=== PATIENT | male | born 1995 | race Caucasian/White ===

== ENCOUNTER 2016-04-07 21:45 | Emergency (ER) | payer OTHER, BC ==
[~2016-04-07] VITALS: Ht 177.8 cm; Wt 80.7 kg
[2016-04-07 21:49] VITALS: TEMP 37; Ht 177.8 cm; Wt 80.7 kg
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
[2016-04-07 23:20] VITALS: BP 128/85; PULSE 71; O2SAT 95
== END 2016-04-07 23:22 | disposition home or self-care (01) ==
LOC: C.EDC 21:47
DX: S00.83XA Contusion of other part of head, initial encounter (principal); S80.812A Abrasion, left lower leg, initial encounter; V43.52XA Car driver injured in collision with other type car in traffic accident, initial encounter; Y93.I9 Activity, other involving external motion; Y99.8 Other external cause status